=== PATIENT | female | born 2005 | race African-American/Black ===

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

== ENCOUNTER 2023-03-05 07:41 | Outpatient (CLI) | payer OTHER | END 2023-03-05 07:42 | disposition home or self-care (01) | LOC: BICULT 07:41 | PROVIDERS: ATTEND Nurse Practitioner Family | DX: N13.30 Unspecified hydronephrosis (principal); E10.69 Type 1 diabetes mellitus with other specified complication; R35.0 Frequency of micturition; E04.9 Nontoxic goiter, unspecified; N28.89 Other specified disorders of kidney and ureter | CPT/HCPCS: 76536; 76770 ==

== ENCOUNTER 2025-05-18 01:45 | Emergency (ER) | payer OTHER ==
[2025-05-18] MEDS ORDERED: Acetaminophen 500 MG TAB ONE (02:22)
[2025-05-18] MEDS ORDERED: Ibuprofen 800 MG TAB ONE (02:52)
[2025-05-18 05:07] LABS: ALT (SGPT) 12 U/L (Less than 34); AST (SGOT) 20 U/L (11-34); Albumin 3.8 g/dL (3.1-4.5); Alkaline Phosphatase 60 U/L (40-110); Anion Gap 15 mmol/L (10-20); BUN (Urea Nitrogen) 6 mg/dL (7.0-18.7); Bilirubin, Total 0.2 mg/dL (0.3-1.2); Calc. Creatinine Clearance 0 mL/min (70-130); Calcium 9.0 mg/dL (7.8-10.44); Carbon Dioxide 20 mmol/L (22-29); Chloride 106 mmol/L (98-107); Globulin 3.5 g/dL (2.4-3.5); Glucose 174 mg/dL (70-105); Potassium 3.5 mmol/L (3.5-5.1); Sodium 137 mmol/L (136-145)
== END 2025-05-18 05:52 | disposition home or self-care (01) ==
LOC: ERS 01:45
DX: J10.1 Influenza due to other identified influenza virus with other respiratory manifestations (principal); E10.9 Type 1 diabetes mellitus without complications
CPT/HCPCS: 80053; 87428; 99283